=== PATIENT | male | born 1990 | race Caucasian/White ===

== ENCOUNTER 2017-10-14 | Inpatient (IN) | payer OTHER ==
[~2017-10-14] VITALS: Ht 172.7 cm; Wt 85.8 kg
[2017-10-14] VITALS (12 sets, daily range): BP systolic 95–123; BP diastolic 50–71; PULSE 79–105; RESP 16–22; TEMP 96.7–98.4; O2SAT 93–100
[2017-10-14] MEDS ORDERED: SODIUM CHLORIDE 0.9% FLUSH 10 ML FLUSH IVF PRN ×2 (00:45)
[2017-10-14 00:57] LABS: BASOPHIL % 0.5 % (0.0-2.0); EOSINOPHIL # 0.1 TH/MM3 (0-0.4); EOSINOPHIL % 1.3 % (0.0-4.0); HEMATOCRIT 44.4 % (39.0-51.0); HEMO FLAGS DIFF FINAL; LYMPH % 33.7 % (9.0-44.0); LYMPHOCYTE # 2.4 TH/MM3 (1.0-4.8); MEAN CELL VOLUME 87.9 FL (80.0-100.0); MEAN CORPUSCULAR HEMOGLOBIN 30.3 PG (27.0-34.0); MEAN CORPUSCULAR HGB CONC 34.5 % (32.0-36.0); MONO % 8.1 % (0.0-8.0); NEUT % 56.4 % (16.0-70.0); PLATELET COUNT 296 TH/MM3 (150-450); RED BLOOD COUNT 5.04 MIL/MM3 (4.50-5.90); RED CELL DISTRIBUTION WIDTH 12.7 % (11.6-17.2); WHITE BLOOD COUNT 7.1 TH/MM3 (4.0-11.0)
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
[2017-10-14 01:05] LABS: I-STAT POTASSIUM 4.1 MMOL/L (3.5-4.9)
[2017-10-14 01:08] LABS: INTERNATIONAL NORMALIZED RATIO 0.9 RATIO; PROTHROMBIN TIME - PATIENT 10.3 SEC (9.8-11.6)
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
[2017-10-14] MEDS ORDERED: IOHEXOL 350 MG/ML 10 ML VIAL (for RAD DIAG) IVCONTRAST ONE (01:22)
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
[2017-10-14] MEDS ORDERED: SODIUM CHLORIDE 0.9% FLUSH 10 ML FLUSH IV FLUSH PRN (02:30)
[2017-10-14] MEDS ORDERED: MISCELLANEOUS NURSING INFORMATION XX SCH (02:30)
[2017-10-14] MEDS ORDERED: CHLORHEXIDINE GLUCONATE 2 % 1 PACK (2 CLOTHS) TOP PRN (02:30)
[2017-10-14] MEDS ORDERED: ONDANSETRON HCL 4 MG/2 ML VIAL IV PUSH PRN (02:30)
[2017-10-14] MEDS ORDERED: HYDROmorphone HCL PF 1 MG/ML VIAL IVP PRN (02:30)
[2017-10-14] MEDS: CHLORHEXIDINE GLUCONATE 2 % 1 PACK (2 CLOTHS) TOP SCH ×2 (03:08→19:33)
[2017-10-14] MEDS ORDERED: LACTULOSE SYRUP 20 GM/30 ML CUP PO PRN (07:15)
[2017-10-14] MEDS: METHOCARBAMOL 500 MG TAB PO SCH ×3 (08:39→19:32)
[2017-10-14] MEDS ORDERED: DOCUSATE SODIUM 100 MG CAP PO SCH (09:00)
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
[2017-10-14] MEDS: DOCUSATE SODIUM 50 MG/SENNA 8.6 MG TAB PO SCH ×2 (12:57→19:33)
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
[2017-10-15 00:21] VITALS: BP 112/66; PULSE 100; RESP 18; TEMP 97.6; O2SAT 94
[2017-10-15] MEDS: METHOCARBAMOL 500 MG TAB PO SCH ×3 (05:56→21:24)
[2017-10-15 08:00] VITALS: BP 95/60; PULSE 82; RESP 18; TEMP 97.2; O2SAT 96
[2017-10-15] MEDS: DOCUSATE SODIUM 50 MG/SENNA 8.6 MG TAB PO SCH ×2 (08:00→21:24)
[2017-10-15 08:57] LABS: AUTOMATED NEUTROPHIL # 3.2 TH/MM3 (1.8-7.7); BASOPHIL # 0.1 TH/MM3 (0-0.2); BASOPHIL % 0.9 % (0.0-2.0); EOSINOPHIL # 0.2 TH/MM3 (0-0.4); EOSINOPHIL % 2.8 % (0.0-4.0); HEMATOCRIT 41.5 % (39.0-51.0); HEMO FLAGS DIFF FINAL; LYMPHOCYTE # 2.1 TH/MM3 (1.0-4.8); MEAN CELL VOLUME 87.9 FL (80.0-100.0); MEAN CORPUSCULAR HEMOGLOBIN 31.1 PG (27.0-34.0); MEAN CORPUSCULAR HGB CONC 35.4 % (32.0-36.0); MONO % 12.3 % (0.0-8.0); PLATELET COUNT 246 TH/MM3 (150-450); RED BLOOD COUNT 4.72 MIL/MM3 (4.50-5.90); WHITE BLOOD COUNT 6.2 TH/MM3 (4.0-11.0)
[2017-10-15] MEDS ORDERED: INFLUENZA VIRUS VACCINE (QUADRIVALENT) 0.5 ML SYR IM ONE (09:00)
[2017-10-15 09:25] LABS: BICARBONATE 29.1 MEQ/L (21.0-32.0); POTASSIUM 3.9 MEQ/L (3.5-5.1)
[2017-10-15 12:00] VITALS: BP 107/62; PULSE 89; RESP 18; TEMP 97.9; O2SAT 96
[2017-10-15] MEDS: ENOXAPARIN SODIUM 30 MG/0.3 ML SYRINGE SQ SCH ×2 (12:16→23:41)
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
[2017-10-15] MEDS ORDERED: GADODIAMIDE PF 287 MG/ML 20 ML VIAL (for RAD MRI) IVCONTRAST ONE (13:18)
--- NOTE | 2017-10-15 13:44 | RADRPT ---
EXAM DATE/TIME: 10/15/2017 12:58 [facility] COMPARISON: No previous studies available for comparison. INDICATIONS : Inability to ambulate. CONTRAST: 20 cc Omniscan (gadodiamide) IV MEDICAL HISTORY : None. SURGICAL HISTORY : None. ENCOUNTER: Initial ACUITY: 1 day PAIN SCORE: 0/10 LOCATION: cranial TECHNIQUE: Multiplanar, multisequence MRI of the brain was performed both prior to and following the administrat ion of paramagnetic contrast. FINDINGS: CEREBRUM: The ventricles are normal for age. No evidence of midline shift, mass lesion, hemorrhage or acute in farction. No extraaxial fluid collections are seen. The pituitary gland and suprasellar cistern are normal in configuration. Subcentimeter fluid signal in the basal ganglia bilaterally, relatively sym metric and probably representing prominent perivascular spaces. WHITE MATTER: No significant signal abnormalities are seen in the white matter. POSTERIOR FOSSA: The cerebellum and brainstem are intact. The 4th ventricle is midline. The cerebellopontine angle is unremarkable. The cerebellar tonsils are normal in position. DIFFUSION IMAGING: No focal areas of restricted diffusion are seen. No evidence of acute infarction. EXTRACRANIAL: The visualized portions of the orbits and paranasal sinuses are unremarkable. POST-CONTRAST: No abnormal areas of parenchymal or dural enhancement. No evidence of blood-brain barrier breakdown. CONCLUSION: 1. No acute findings. Probable prominent perivascular spaces in the basal ganglia bilaterally. No rec ent infarct. No abnormal enhancement post contrast. Caio Rosales MD on October 15, 2017 at 13:37 Board Certified Radiologist. This report was verified electronically.
--- NOTE | 2017-10-15 13:46 | RADRPT ---
EXAM DATE/TIME: 10/15/2017 12:58 [facility] COMPARISON: No previous studies available for comparison. INDICATIONS : Inability to ambulate. MEDICAL HISTORY : None. SURGICAL HISTORY : None. ENCOUNTER: Initial ACUITY: 1 day PAIN SCORE: 0/10 LOCATION: cranial Please note a normal MRA of the brain does not entirely exclude the possibility of a small aneurysm, nor the possibility of distal intracranial vessel disease. TECHNIQUE: 3D time of flight MRA was performed. Source images, multiplanar STS MIP, and 3D volume MIP reconstru ctions were reviewed. FINDINGS: There is excellent visualization of the major intracranial arteries out to the second-order branch ve ssels. There is no evidence for aneurysm, vessel truncation or stenosis, and no evidence for vascula r malformation. CONCLUSION: Normal examination for a patient of this age. Caio Rosales MD on October 15, 2017 at 13:42 Board Certified Radiologist. This report was verified electronically.
--- NOTE | 2017-10-15 13:57 | RADRPT ---
EXAM DATE/TIME: 10/15/2017 12:58 [facility] COMPARISON: No previous studies available for comparison. INDICATIONS : Inability to ambulate CONTRAST: 20 cc Omniscan (gadodiamide) IV MEDICAL HISTORY : None. SURGICAL HISTORY : None. ENCOUNTER: Initial ACUITY: 1 day PAIN SCORE: 0/10 LOCATION: neck Percent stenosis is calculated using the diameter of the stenotic region over the diameter of the nor mal distal internal carotid artery. TECHNIQUE: Bolus infused MRA of the extracranial circulation was performed using a neurovascular coil. Post pro cessing was performed including rotating subvolume maximum intensity projections of each carotid pao ry, rotating full volume maximum intensity projections of both carotid arteries, sagittal and coronal sliding thin slab reformations of each carotid artery, and left oblique sliding thin slab reformatio n through the aortic arch to include the origin of the arch branch vessels. FINDINGS: AORTIC ARCH: There is a three vessel origin of the great vessels from the aorta. No evidence of ostial narrowing. RIGHT CAROTID: The common carotid artery is intact. The carotid bulb has a normal configuration without ulceration or narrowing. The internal carotid artery lumen is smooth without stenosis. The external carotid ar glory is intact. LEFT CAROTID: The common carotid artery is intact. The carotid bulb has a normal configuration without ulceration or narrowing. The internal carotid artery lumen is smooth without stenosis. The external carotid ar glory is intact. VERTEBRALS: The vertebral arteries have a symmetric diameter. No stenotic lesions are seen. CONCLUSION: Normal examination for a patient of this age. Caio Rosales MD on October 15, 2017 at 13:54 Board Certified Radiologist. This report was verified electronically.
--- NOTE | 2017-10-15 14:23 | MB ---
cc: Kye DATE OF CONSULTATION: 10/15/2017. ADDENDUM In addition, will obtain an MRA of the carotid arteries in the neck, vertebral arteries and brain to rule out the chance of arterial dissection. MD SENDY Samaniego/LINDA /12:30 PM /2:19 PM
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
[2017-10-15 16:00] VITALS: BP 107/66; PULSE 92; RESP 18; TEMP 97.8; O2SAT 95
[2017-10-15 19:58] VITALS: BP 114/67; PULSE 87; RESP 18; TEMP 97.4; O2SAT 96
[2017-10-16 00:58] VITALS: BP 109/61; PULSE 82; RESP 18; TEMP 97; O2SAT 95
[2017-10-16] MEDS: CHLORHEXIDINE GLUCONATE 2 % 1 PACK (2 CLOTHS) TOP SCH (04:00)
[2017-10-16] MEDS: METHOCARBAMOL 500 MG TAB PO SCH (05:39)
[2017-10-16 07:19] VITALS: BP 92/50; PULSE 99; RESP 18; TEMP 97.9; O2SAT 97
[2017-10-16] MEDS: DOCUSATE SODIUM 50 MG/SENNA 8.6 MG TAB PO SCH (07:39)
[2017-10-16 12:00] VITALS: BP 111/70; PULSE 96; RESP 18; TEMP 97.9; O2SAT 95
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
[2017-10-16] MEDS ORDERED: METH500T3 PO (12:12)
[2017-10-16] MEDS ORDERED: IBUP-232 PO (12:12)
[2017-10-16] MEDS ORDERED: PERC5TAB12 PO (12:12)
[2017-10-16] MEDS ORDERED: PERI PO (12:13)
[2017-10-16] MEDS ORDERED: LACTULOSE SYRUP 20 GM/30 ML CUP PO ONE (13:00)
[2017-10-16] MEDS ORDERED: IBUPROFEN 600 MG TAB PO SCH (14:00)
== END 2017-10-16 15:18 | disposition home or self-care (01) | DRG 552 ==
LOC: NEPC → NEDA 02:12 → N06A 03:34
PROVIDERS: ADMIT Surgery Trauma Surgery; ATTEND Surgery Trauma Surgery
DX: S16.1XXA Strain of muscle, fascia and tendon at neck level, initial encounter (principal); F17.210 Nicotine dependence, cigarettes, uncomplicated; R53.1 Weakness; V43.52XA Car driver injured in collision with other type car in traffic accident, initial encounter; Y92.410 Unspecified street and highway as the place of occurrence of the external cause; S13.4XXA Sprain of ligaments of cervical spine, initial encounter; M25.511 Pain in right shoulder; R40.2410 Glasgow coma scale score 13-15, unspecified time
CPT/HCPCS: 70450; 70544; 70548; 70553; 71010; 71260; 72125; 72128; 72131; 72141; 74177; 80048; 82435; 82565; 82947; 84132; 84295; 84520; 85025; 85610; 85730; 86850; 86900; 86901; 90686; 94150; A9579; J1170; J1650; L0120; L0150; L0172; Q2038; Q9967